=== PATIENT | female | born 1945 | race African-American/Black ===

== ENCOUNTER 2016-08-14 09:50 | Outpatient (RCR) | payer OTHER | END 2016-09-11 | disposition home or self-care (01) | LOC: PTY 09:50 | DX: M16.12 Unilateral primary osteoarthritis, left hip (principal); Z96.643 Presence of artificial hip joint, bilateral; Z91.81 History of falling | CPT/HCPCS: 97110; 97116; G0283 ==

== ENCOUNTER 2017-01-11 13:15 | Outpatient (RCR) | payer OTHER | END 2017-02-08 | disposition home or self-care (01) | LOC: PTY 13:15 | DX: R26.81 Unsteadiness on feet (principal); Z96.642 Presence of left artificial hip joint; Z85.850 Personal history of malignant neoplasm of thyroid; Z96.641 Presence of right artificial hip joint ==

== ENCOUNTER 2017-02-27 11:00 | Outpatient (RCR) | payer OTHER | END 2017-03-11 | disposition home or self-care (01) | LOC: PTY 11:00 | DX: R26.9 Unspecified abnormalities of gait and mobility (principal); R26.81 Unsteadiness on feet; Z96.642 Presence of left artificial hip joint; Z85.850 Personal history of malignant neoplasm of thyroid; Z96.641 Presence of right artificial hip joint ==